=== PATIENT | male | born 1990 | race African-American/Black ===

== ENCOUNTER 2021-10-17 16:52 | Inpatient (IN) | payer OTHER ==
[~2021-10-17] VITALS: Ht 152.4 cm; Wt 143.9 kg
[2021-10-17 16:55] VITALS: BP 147/99
[2021-10-17 17:22] LABS: ABSOLUTE NEUTROPHILS 4.4 thou/uL (1.4-8.2); BASOPHILS 1.2 % (0.0-2.0); EOSINOPHILS 1.1 % (0.0-3.0); HEMATOCRIT 41.7 % (42.0-52.0); HEMOGLOBIN 14.4 gm/dL (14.0-18.0); LYMPHOCYTES 31.8 % (24.0-44.0); MCH 27.2 pg (26.0-34.0); MCHC 34.5 g/dL (28.0-37.0); MCV 78.8 fL (80.0-100.0); MONOCYTES 6.7 % (1.0-8.0); PLATELET COUNT 264 thou/uL (150-400); POLYS 59.2 % (36.0-66.0); RBC 5.29 mil/uL (4.50-6.00); RDW 13.9 % (10.5-14.5); WBC 7.4 thou/uL (4.0-11.0)
[2021-10-17 17:22] LABS: URINE BILIRUBIN NEGATIVE (Negative); URINE BLOOD TRACE (Negative); URINE CLARITY CLEAR; URINE COLOR YELLOW; URINE GLUCOSE-RANDOM* 3+ (Negative); URINE KETONES 1+ (Negative); URINE LEUKOCYTES-REFLEX NEGATIVE (Negative); URINE NITRITE-REFLEX NEGATIVE (Negative); URINE PROTEIN (DIPSTICK) NEGATIVE (Negative); URINE UROBILINOGEN 0.2 E.U./dl (0.2-1.0)
[2021-10-17 17:27] LABS: BE(vivo) -1.4 mmol/L (-2 to +3); HCO3 22.6 mmol/L (22.0-26.0); PCO2 VENOUS 35.9 mmHg (41.0-51.0); PO2 VENOUS 69.7 mmHg (35.0-45.0)
[2021-10-17 17:57] LABS: ALBUMIN 3.9 g/dL (3.4-5.0); CALCIUM 9.8 mg/dL (8.5-10.1); CREATININE 1.5 mg/dL (0.7-1.3); POTASSIUM 4.6 mmol/L (3.5-5.1); TOTAL BILIRUBIN 0.5 mg/dL (0.2-1.0)
[2021-10-17 17:58] LABS: MAGNESIUM 2.2 mg/dL (1.8-2.4)
[2021-10-17 19:55] VITALS: BP 124/88
[2021-10-17 19:58] VITALS: BP 124/88
[2021-10-17 20:45] VITALS: BP 155/87
[2021-10-17 20:49] VITALS: BP 141/94
[2021-10-18] VITALS (7 sets, daily range): BP systolic 130–174; BP diastolic 63–99
--- NOTE | 2021-10-18 04:21 | NUR ---
RECEIVED PATIENT FROM THE EMERGENCY AROUND 2100H.PATIENT IS ALERT AND ORIENTED X4.ON ROOM AIR BREATHING SPONTANEOUSLY.NOT IN PAIN OR DISTRESS.INSULIN INF. STARTED AROUND 2200H THIS NURSE ATTENDED CODE BLUE FOR ANOTHER PATIENT.STARTED INSULIN DRIP AT 2UNITS/HR PER LUSTER APPLICATOR(TUAN ORONA).ADMISSION COMPLETED.INSULIN TITRATION DONE PER PROTOCOL.AT AROUND 0100AM,THERE WERE 2 CONSECUTIVE BSL MORE THAN 400, INFORMED LUSTER APPLICATOR(TUAN ORONA),SHE ORDERED TO INCREASE INSULIN DRIP FROM 6UNITS/HR TO 8 UNITS/HR.BSL MONITORING AND INSULIN DRIP TITRATION DONE PER PROTOCOL.ALL NEEDS ATTENDED.TO CONTINOUSLY MONITOR.
[2021-10-18 04:51] LABS: CALCIUM 8.1 mg/dL (8.5-10.1); CREATININE 1.1 mg/dL (0.7-1.3)
[2021-10-18 05:01] LABS: POTASSIUM 3.6 mmol/L (3.5-5.1)
--- NOTE | 2021-10-18 07:09 | EKG ---
[address] [place] [address] ELECTROCARDIOGRAM REPORT Name: REY ARREAGA Room #: 213-P ADM IN M.R.#: [id number] Admission: 10/17/21 Attend Phys: Orquidea Chu Discharge: Date of : 89 Report #: [id number] [facility] ED Test Date: 2021-10-17 Test Time: 17:09:18 Pat Name: REY ARREAGA Department: Room: 213 Gender: M Bit Sharpener: : 1990 Requested By: Jojo Yuen Order Number: [id number] MD: Gary Sebastian Measurements Intervals [place] Rate: 106 P: 88 NC: 103 QRS: 58 QRSD: 79 T: -52 QT: 308 QTc: 409 Interpretive Statements Sinus tachycardia Probable left atrial enlargement Nonspecific T abnormalities, inferior leads No previous ECG available for comparison Electronically Signed On 10-18-2021 7:09:17 DISPATCH SUPERVISOR by Gary Sebastian [email or web address] <ELECTRONICALLY SIGNED> By: Gary Sebastian MD, [facility] 10/18/21 0709 1709 1709 Gary Sebastian MD, FACC /EPI
--- NOTE | 2021-10-18 16:17 | NUR ---
PT ADMITTED RELATED TO [facility]. CM REVIEWED CHART AND SPOKE WITH CARE TEAM. CM MET WITH PT AT BEDSIDE THIS DAY. PT APPEARED TO BE A&O X4. CM ROLE INTRODUCED. PT INDICATED HE RESIDES IN AN APARTMENT WITH HIS SIG OTHER. HE INDICATED 1 STEP TO ENTER AND NONE INSIDE. 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 CM SPOKE WITH PT ABOUT GLUCOMETER AND TESTING SUPPLIES UPON DC. SPOKE ABOUT THE BRAND WE ISSUE HERE OR GETTING A RELION BRAND AT [facility]. CM TO TAVAREZ OUT OUR BRAND HERE TO INFORM PT. PT IS UNINSURED AND IS INTERESTED IN dBMED[employer] NET CLINIC PACKET UPON DC. CM FOLLOWING REGARDING DC PLANNING.
--- NOTE | 2021-10-18 16:59 | NUR ---
ASSUMED CARE OF PATIENT AT 0700. PATIENT A&OX4, ON RA, NSR ON TELE. STARTED THE MORNING ON INSULIN GTT WHICH WAS DC'D AND THEN SCHEDULED ACHS. PATIENT HAS BEEN IN THE 300'S AND TREATED PER EMAR. IV TEAM HAAD TO PLACE TWO NEW IV'S IN WITH A FINAL ON IN THE RIGHT FA. PATIENT STILL REMAINS ON FLUIDS AT 126ML.HR. UP AD ISABELA IN ROOM. ASKING NUMEROUS QUESTIONS ABOUT DIABETES AND DIET AND TRYING TO ANSWER AT THE BEST OF MY ABILITY. PATIENT PROGRESSING TOWARD POC.
--- NOTE | 2021-10-18 21:51 | NUR ---
PT ALERT X4. VSS AFEBBRILE. C/O SORETHROAT AND MOUTH. HE THOUGHT IT COULD BE AN ALLERGY TO SOMETHING. 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 CEPACOL LOZENGE GIVEN. NO SWELING OR RASH NOTED. NS INFUSING.
== END 2021-10-19 | disposition home or self-care (01) | DRG 639 ==
LOC: ER 16:52 → EROBS 19:24 → 2N 20:49
PROVIDERS: Nurse Practitioner Family; Physician Assistant; ADMIT Hospitalist; ATTEND Hospitalist
DX: E11.00 Type 2 diabetes mellitus with hyperosmolarity without nonketotic hyperglycemic-hyperosmolar coma (NKHHC) (principal); Z79.4 Long term (current) use of insulin; Z20.822 Contact with and (suspected) exposure to COVID-19; I10 Essential (primary) hypertension
CPT/HCPCS: 10081